=== PATIENT | male | born 1995 | race Caucasian/White ===

== ENCOUNTER 2018-01-26 10:41 | Emergency (ER) | payer OTHER ==
[~2018-01-26] VITALS: Ht 175.3 cm; Wt 81.7 kg
[~2018-01-26 10:41] MED LIST: AMOXICILLIN875 MG PO; APAP/CODEI12 MG/5 M1 OR; AUGMENTIN 875875 M1 PO; BACTRIM DS TAB1 EACH PO; CEPHALEXIN 500500 M2 PO; CIPROFLOXACIN500 M1 PO; FLOMAX0.4 MG PO; HALDOL 0.5 MG0.5 MG PO; HYDROCODONE-APA1 TA1 PO; IBUPROFEN 800800 M1 PO; NOHOMEMEDICATIONS; NORCO 5-325 TA1 EACH PO; PROTONIX40 M2 PO; PROZAC20 MG/5 ML PO; TRAZODONE HCL100 MG PO; ULTRAM 50MG TAB50 MG PO; VISTARIL 25 MG25 M1 PO; ZANTAC150 M2 PO
[2018-01-26] MEDS ORDERED: PEPCID40 MG PO (10:44)
[2018-01-26] MEDS ORDERED: ZYRTEC 10 MG TA10 MG PO (10:44)
[2018-01-26] MEDS ORDERED: PREDNISONE 20 M20 M1 PO (10:44)
[2018-01-26] MEDS ORDERED: LITHIUM CARBON300 M6 (10:47)
[2018-01-26 11:14] VITALS: BP 118/65
[2018-01-27] MEDS ORDERED: KEFLEX500 M1 PO (12:01)
[2018-01-27] MEDS ORDERED: MUPIROCIN22 GM TOP (12:01)
== END 2018-01-26 11:25 | disposition home or self-care (01) ==
LOC: M.ERS 10:41
DX: L50.9 Urticaria, unspecified (principal); F41.9 Anxiety disorder, unspecified; F31.9 Bipolar disorder, unspecified; F17.210 Nicotine dependence, cigarettes, uncomplicated

== ENCOUNTER 2018-01-27 11:34 | Emergency (ER) | payer OTHER ==
[~2018-01-27] VITALS: Ht 175.3 cm; Wt 79.4 kg
[~2018-01-27 11:34] MED LIST changes: +LITHIUM CARBON300 M6; +PEPCID40 MG PO; +PREDNISONE 20 M20 M1 PO; +ZYRTEC 10 MG TA10 MG PO
[2018-01-27] MEDS ORDERED: MUPIROCIN22 GM TOP (12:01)
[2018-01-27] MEDS ORDERED: KEFLEX500 M1 PO (12:01)
[2018-01-27 12:16] VITALS: BP 136/72
== END 2018-01-27 12:16 | disposition home or self-care (01) ==
LOC: M.ERS 11:34
DX: L98.8 Other specified disorders of the skin and subcutaneous tissue (principal); F17.210 Nicotine dependence, cigarettes, uncomplicated; F41.9 Anxiety disorder, unspecified; F31.9 Bipolar disorder, unspecified; J42 Unspecified chronic bronchitis